=== PATIENT | male | born 1975 | race Caucasian/White ===

== ENCOUNTER 2024-06-15 12:28 | Day surgery (SDC) | payer BC ==
[2024-06-12 11:47] VITALS: BMI 32.8
[2024-06-15] MEDS ORDERED: Bupivacaine PF 0.5% 30 ML VIAL ONE (13:18)
[2024-06-15] MEDS ORDERED: Bacitracin Zinc Ointment 30 gm TUBE ONE (13:18)
[2024-06-15] MEDS ORDERED: Midazolam HCl 2 mg/2 ml Vial ONE ×2 (13:36→13:51)
[2024-06-15] MEDS ORDERED: CEFAZOLIN 2 GM VIAL ONE (13:37)
[2024-06-15] MEDS ORDERED: Sodium Chloride 0.9% 100 ML ONE (13:37)
[2024-06-15] MEDS ORDERED: PROPOFOL 80 ML ONE (13:47)
[2024-06-15] MEDS ORDERED: Lidocaine 2% PF 5 ML VIAL ONE (13:50)
[2024-06-15] MEDS ORDERED: Ketorolac Tromethamine 30 MG (1 mL) VIAL ONE (15:20)
== END 2024-06-15 16:05 | disposition home or self-care (01) ==
LOC: SDC 12:28
PROVIDERS: ATTEND Orthopaedic Surgery Hand Surgery
PROC: 0LN70ZZ Release Right Hand Tendon, Open Approach (ICD-10-PCS; principal; 2024-06-15)
DX: M65.331 Trigger finger, right middle finger (principal); Z86.010 Personal history of colon polyps; Z98.890 Other specified postprocedural states; Z98.52 Vasectomy status; Z79.899 Other long term (current) drug therapy
CPT/HCPCS: A6223; J0665; J1885; J2001; J2250; J2704